=== PATIENT | male | born 1995 | race Caucasian/White ===

== ENCOUNTER 2018-10-14 11:49 | Emergency (ER) | payer MEDICAID ==
[~2018-10-14] VITALS: Ht 177.8 cm; Wt 113.6 kg
[~2018-10-14 11:49] MED LIST: NOCURR
[2018-10-14] MEDS ORDERED: KETOROLAC TROMETHAMINE 60 MG/2 ML VIAL IM ONE (14:00)
[2018-10-14] MEDS ORDERED: CYCLOBENZAPRINE HCL 10 MG TABLET PO ONE (14:00)
[2018-10-14 14:48] VITALS: BP 151/68
== END 2018-10-14 15:13 | disposition home or self-care (01) ==
LOC: EMS 11:50
DX: G43.909 Migraine, unspecified, not intractable, without status migrainosus (principal)
CPT/HCPCS: 96372; 99283; J1885